=== PATIENT | male | born 1965 | race Caucasian/White ===

== ENCOUNTER 2018-07-23 08:22 | Day surgery (SDC) | payer OTHER ==
[2018-07-16 13:44] VITALS: BMI 34.2
--- NOTE | 2018-07-23 07:39 | OP ---
Operative Note - Note: Operative Date: 07/23/18 Pre-Operative Diagnosis: Left medial meniscus tear Operation: Left knee arthroscopy with partial medial and lateral meniscectomy Post-Operative Diagnosis: Same as Pre-op Surgeon: Tyler Hdez Cutting Tool Sharpener: Dali Velásquez Anesthesiologist/CRITICAL CARE TECHNICIAN: Alberto Tong Anesthesia: General Operative Report Dictated: Yes
[2018-07-23] MEDS ORDERED: MIDAZOLAM HCL 2 MG/2 ML SINGLE DOSE VIAL ONE (11:00)
[2018-07-23] MEDS ORDERED: PROPOFOL 20 ML ONE (11:01)
[2018-07-23] MEDS ORDERED: BUPIVACAINE HCL 0.25% 125 MG/50 ML VIAL ONE ×2 (11:22→12:35)
[2018-07-23] MEDS ORDERED: BUPIVACAINE HCL/PF 0.25% (2.5MG/ML) 10 ML VIAL IJ ONE ×2 (11:56)
[2018-07-23] MEDS ORDERED: oxyCODONE HCL 5 MG TABLET PO PRN (13:22)
[2018-07-23 13:47] VITALS: TEMP 97.8
--- NOTE | 2018-07-23 15:22 | OP ---
DATE OF OPERATION: 07/23/2018 POSTOPERATIVE DIAGNOSIS: Left knee medial meniscal tear and lateral meniscal tear. POSTOPERATIVE DIAGNOSIS: Left knee medial meniscal tear and lateral meniscal tear. PROCEDURE: Left knee arthroscopy with partial medial, partial lateral meniscectomy. SURGEON: Mike Burkett MD MODEL MAKER SCALE: KRYSTIN Rouse ANESTHESIA: General. POSTOPERATIVE CONDITION: Stable. COMPLICATIONS: None. INDICATIONS: This is a pleasant 53-year-old gentleman who had been suffering from medial more so than lateral knee pain. MRI demonstrated medial meniscal tear. Treatment options including nonoperative versus operative management were reviewed. Operative risks were reviewed in detail including bleeding, infection, neurovascular injury, need for further surgery, postoperative pain and stiffness, progression of osteoarthritis. We discussed medical risks such as heart attack, stroke, DVT, PE, and . I addressed the use of perioperative antibiotic and DVT prophylaxis. I reviewed the postoperative rehabilitation protocol. I addressed all of the patient's questions and concerns. He voiced understanding and elected to proceed. DESCRIPTION OF PROCEDURE: The patient was brought to the operating room where general anesthetic was administered. The left lower extremity was then prepped and draped in the usual sterile fashion. A preoperative dose of antibiotics was given, and the usual time-out procedure was performed. The portal sites were now marked out. Injected subcutaneously with 0.25% Marcaine. A lateral portal was now established. The arthroscope was passed into the patellofemoral joint. Examination of the patellofemoral joint demonstrated some [id number] thickness articular wear more so on the patellar side than on the trochlea. The arthroscope was passed into the notch. The ACL and PCL were visualized to be intact. In addition, a bucket handle medial meniscal tear was visualized. Medial portal was now established under spinal needle localization. The bucket handle tear was attempted to be reduced; however, given the chronicity present, there was too much deformity at the hinges areas, and no reduction was possible. The decision was made to excise the meniscus. Utilizing a combination of meniscal biters and kevin, the meniscus was debrided down to a stable base. During this process, getting to the posterior horn adjacent to the root was difficult. To aid in this process, 2 additional steps were taken. One, common accessory medial portal was established. This allowed the shaver to be a further on the back. Two, a spinal needle was used to make multiple passes through the deep MCL utilizing a piecrust technique to allow for the MCL loosening. The posterior portion of the meniscus was now able to be visualized, and this was debrided down to a stable base. The arthroscope was now passed into the lateral compartment. Here, a complex tear was noted involving the body and posterior horn of the meniscus. Moderate articular wear was noted on both the medial and lateral sides. The meniscus here too was shaved down to a stable base. At this point, the knee was inspected around all of the different compartments. No additional debris was seen. The portals were sutured using 3-0 nylon. Sterile dressings were placed. The patient was placed into a knee immobilizer given the stress needed on the MCL. He was extubated and transferred to the recovery room in stable condition. MIKE BURKETT M.D. [id number]
[2018-07-23 16:54] VITALS: BP 143/80; PULSE 73
== END 2018-07-23 16:35 | disposition home or self-care (01) ==
LOC: FASU 08:22
PROVIDERS: ATTEND Orthopaedic Surgery Sports Medicine
PROC: 0SBD4ZZ Excision of Left Knee Joint, Percutaneous Endoscopic Approach (ICD-10-PCS; 2018-07-23)
PROC: 0SBD4ZZ Excision of Left Knee Joint, Percutaneous Endoscopic Approach (ICD-10-PCS; principal; 2018-07-23 11:57)
DX: S83.242A Other tear of medial meniscus, current injury, left knee, initial encounter (principal); S83.282A Other tear of lateral meniscus, current injury, left knee, initial encounter; X58.XXXA Exposure to other specified factors, initial encounter; Y93.9 Activity, unspecified; Y92.9 Unspecified place or not applicable
CPT/HCPCS: 94760